=== PATIENT | male | born 1945 | race Caucasian/White ===

== ENCOUNTER 2019-12-31 22:11 | Emergency (ER) | payer OTHER ==
--- OUTSIDE RECORDS SUMMARY | 2019-12-31 22:13 | XMS REPORT | Clinical Summary ---
:1945 Author Organization [facility] Address [address] [place] [address] Care Team Providers Name Role Phone Lj Hall MD Primary Care Provider Allergies No Known Allergies Medications Medication Sig Dispensed Refills Start Date End Date Status donepezil (ARICEPT) 10 MG Take 10 mg by 0 Active tablet mouth nightly. metoprolol succinate XL Take 25 mg by 0 Active (TOPROL-XL) 25 mg 24 hr mouth tablet nightly. hydroCHLOROthiazide Take 12.5 mg 0 Active (HYDRODIURIL) 12.5 MG by mouth tablet every morning. 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 Last Filed Vital Signs Not on file Plan of Treatment Health Maintenance Due Date Last Done Comments SHINGLES VACCINES (#1) 1993 65+ PNEUMOCOCCAL VACCINE (1 of 2 - PCV13) 02/05/2008 INFLUENZA VACCINE 03/17/2020 COLONOSCOPY SCREENING 02/23/2022 02/23/2017 Results Not on fileafter 12/30/2018 Advance Directives For more information, please contact: [phone] Type Date Recorded Patient Armor Reconnaissance Vehicle Driver Explanati on Advance Directives, Living Will and Medical Power of Architecture Faculty Member Advance Directives, 04/06/2017 12:00 AM Living Will and Medical Power of Architecture Faculty Member
[2019-12-31 23:47] LABS: Basophils % 0.5 % (0-1.3); Hematocrit 47.1 % (39.6-49.0); Lymphocytes % 12.2 % (15.3-44.8); MPV 8.1 fL (7.6-11.3); RBC Red Blood Cell Count 5.23 M/uL (4.33-5.43)
[2019-12-31 23:54] LABS: Protime INR 1.01
[2020-01-01 00:04] LABS: Albumin 3.8 g/dL (3.4-5.0); Bilirubin Direct 0.1 mg/dL (0-0.2); Bilirubin Total 0.3 mg/dL (0.2-1.0); Potassium 3.9 mmol/L (3.5-5.1); Protein, Total 7.5 g/dL (6.4-8.2)
[2020-01-01 00:07] LABS: Magnesium 2.5 mg/dL (1.8-2.4); NT PRO-BNP 41 pg/mL (<450); Troponin (Emerg Dept Use Only) < 0.02 ng/mL (0.0-0.045)
[2020-01-01] MEDS ORDERED: MECLIZINE HCL 12.5 MG TAB ONE (00:46)
[2020-01-01] MEDS ORDERED: NA CHLORIDE 0.9% 1,000 ML ONE (00:46)
[2020-01-01] MEDS ORDERED: ONDANSETRON 4 MG/2 ML VIAL ONE (00:46)
--- NOTE | 2020-01-01 01:03 | ER ---
Nurse's Notes [facility] Name: Robby Dejesus Age: 74 yrs Sex: Male : 1945 Arrival Date: 12/31/2019 Time: 22:14 Bed 20 Private MD: Diagnosis: Vertiginous syndromes in diseases classified elsewhere, unspecified ear;Vomiting Presentation: 12/30 22:35 Chief complaint: Spouse and/or significant other states: patient suddenly vomited, rr5 feels dizzy and cold clammy started around 2100H tonight. no weakness, no LOC reported. 22:35 Coronavirus screen: Proceed with normal triage. Ebola Screen: Patient negative for rr5 fever greater than or equal to 101.5 degrees Fahrenheit, and additional compatible Ebola Virus Disease symptoms Patient denies exposure to infectious person. Patient denies travel to an Ebola-affected area in the 21 days before illness onset. Initial Sepsis Screen: Does the patient meet any 2 criteria? No. Patient's initial sepsis screen is negative. Does the patient have a suspected source of infection? No. Patient's initial sepsis screen is negative. Risk Assessment: Do you want to hurt yourself or someone else? Patient reports no desire to harm self or others. Onset of symptoms was December 31, 2019 at 21:00. 22:35 Method Of Arrival: Wheelchair rr5 22:35 Acuity: HUY 3 rr5 Historical: - Allergies: 22:43 No Known Allergies; rr5 - Home Meds: 22:43 hctz [Active]; Metoprolol Tartrate Oral [Active]; alzheimer medication [Active]; rr5 - PMHx: 22:43 Alzheimers; colon tumor; Hypertension; rr5 - PSHx: 22:43 colon surgery; Cholecystectomy; rr5 - Immunization history:: Adult Immunizations up to date. - Social history:: Smoking status: Patient denies any tobacco usage or history of. Patient/guardian denies using alcohol, street drugs. Screenin:43 Abuse screen: Denies threats or abuse. Denies injuries from another. Nutritional rr5 screening: No deficits noted. Tuberculosis screening: No symptoms or risk factors identified. Fall Risk Secondary diagnosis (15 points) Alzheimer's, IV access (20 points). Total Chaudhari Fall Scale indicates No Risk (0-24 pts). 22:45 VAN Screening: Arm Drift: Patient shows no arm weakness. Patient is VAN negative. rr5 Assessment: 22:45 General: Appears in no apparent distress. comfortable, Behavior is calm, cooperative. rr5 Pain: Denies pain. Neuro: Level of Consciousness is awake, alert, obeys commands, Oriented to person, place, time, Cable Systems Installer are equal bilaterally Moves all extremities. Full function Speech is normal, Facial symmetry appears normal, Reports dizziness. Cardiovascular: Capillary refill < 3 seconds Patient's skin is warm and dry. Respiratory: Airway is patent Respiratory effort is even, unlabored, Respiratory pattern is regular, symmetrical. GI: Abdomen is round non-distended, Parent/caregiver reports the patient having nausea, vomiting. : No signs and/or symptoms were reported regarding the genitourinary system. EENT: No signs and/or symptoms were reported regarding the EENT system. Derm: Skin is intact, is healthy with good turgor, Skin temperature is warm. Musculoskeletal: Capillary refill < 3 seconds. 12/31 00:00 Reassessment: Patient appears in no apparent distress at this time. No changes from rr5 previously documented assessment. Patient and/or family updated on plan of care and expected duration. Pain level reassessed. 00:30 Reassessment: Patient appears in no apparent distress at this time. Patient is alert, rr5 oriented x 3, equal unlabored respirations, skin warm/dry/pink. seen and examined by ED provider with order made and carried out. 01:15 Reassessment: Patient appears in no apparent distress at this time. Patient is alert, rr5 oriented x 3, equal unlabored respirations, skin warm/dry/pink. discharge instruction given and explained without complaints made. Patient states feeling better. Patient states symptoms have improved. Vital Signs: 12/30 22:35 BP 146 / 81; Pulse 52; Resp 16; Temp 97.5; Pulse Ox 99% ; Weight 78.47 kg; Height 6 ft. rr5 0 in. (182.88 cm); Pain 0/10; 23:00 BP 146 / 81; Pulse 53; Resp 18; Pulse Ox 98% ; rr5 12/31 00:00 BP 148 / 82; Pulse 50; Resp 15; Pulse Ox 98% ; rr5 00:55 BP 142 / 77; Pulse 49; Resp 19; Pulse Ox 99% ; rr5 01:20 BP 135 / 78; Pulse 51; Resp 18; Pulse Ox 98% ; rr5 12/30 22:35 Body Mass Index 23.46 (78.47 kg, 182.88 cm) rr5 ED Course: 12/30 22:14 Patient arrived in ED. ds1 22:32 Storm Whitehead, RN is Primary Nurse. rr5 22:40 Triage completed. rr5 22:40 Arm band placed on right wrist. rr5 22:45 Patient has correct armband on for positive identification. Bed in low position. Call rr5 light in reach. Pulse ox on. NIBP on. 22:54 Roberto Archer MD is Attending Physician. santos 23:15 Inserted saline lock: 20 gauge in right forearm, using aseptic technique. Blood rr5 collected. 23:18 pump machine operator on. rr5 23:18 EKG done, by ED staff, reviewed by Roberto Archer MD. rr5 12/31 00:02 XRAY Chest (1 view) In Process Unspecified. EDMS 01:01 Jori Vargas MD is Referral Physician. santos 01:15 Urine collected: clean catch specimen, clear. rr5 01:20 No provider procedures requiring assistance completed. IV discontinued, intact, rr5 bleeding controlled, No redness/swelling at site. Pressure dressing applied. Administered Medications: 00:35 Drug: NS 0.9% 1000 ml Route: IV; Rate: 1 bolus; Site: right forearm; rr5 01:20 Follow up: Response: No adverse reaction; IV Status: Completed infusion; IV Intake: rr5 1000ml 00:35 Drug: Zofran (Ondansetron) 4 mg Route: IVP; Site: right forearm; rr5 01:20 Follow up: Response: No adverse reaction rr5 00:36 Drug: Meclizine 50 mg Route: PO; rr5 01:20 Follow up: Response: No adverse reaction; Marked relief of symptoms rr5 Intake: 01:20 IV: 1000ml; Total: 1000ml. rr5 Outcome: 01:01 Discharge ordered by . santos 01:20 Discharged to home via wheelchair, with family. rr5 01:20 Condition: stable 01:20 Discharge instructions given to patient, family, Instructed on discharge instructions, follow up and referral plans. medication usage, Demonstrated understanding of instructions, follow-up care, medications, Prescriptions given X 2. 01:26 Patient left the ED. rr5 Signatures: Dispatcher [employer] Roberto Lewis MD MD cha Sanford, Demi ds1 Storm Whitehead, RN RN rr5
--- NOTE | 2020-01-01 01:03 | EDPHYS ---
Physician Documentation [facility] Name: Robby Dejesus Age: 74 yrs Sex: Male : 1945 Arrival Date: 12/31/2019 Time: 22:14 Bed 20 Private MD: RADHA Physician Roberto Archer HPI: 12/31 00:32 This 74 yrs old Male presents to ER via Wheelchair with complaints of santos Vomiting. 00:32 The patient presents to the emergency department with nausea, vomiting, that is santos intermittent. Onset: The symptoms/episode began/occurred just prior to arrival. Possible causes: unknown. The symptoms are aggravated by movement, The symptoms are alleviated by remaining still. Associated signs and symptoms: Pertinent positives: nausea, vomiting. Severity of symptoms: At their worst the symptoms were moderate in the emergency department the symptoms have improved mildly. The patient has not experienced similar symptoms in the past. Historical: - Allergies: 12/30 22:43 No Known Allergies; rr5 - Home Meds: 22:43 hctz [Active]; Metoprolol Tartrate Oral [Active]; alzheimer medication [Active]; rr5 - PMHx: 22:43 Alzheimers; colon tumor; Hypertension; rr5 - PSHx: 22:43 colon surgery; Cholecystectomy; rr5 - Immunization history:: Adult Immunizations up to date. - Social history:: Smoking status: Patient denies any tobacco usage or history of. Patient/guardian denies using alcohol, street drugs. ROS: 12/31 00:33 Constitutional: Negative for fever, chills, and weight loss, Eyes: Negative for injury, santos pain, redness, and discharge, ENT: Negative for injury, pain, and discharge, Neck: Negative for injury, pain, and swelling, Cardiovascular: Negative for chest pain, palpitations, and edema, Respiratory: Negative for shortness of breath, cough, wheezing, and pleuritic chest pain, Back: Negative for injury and pain, : Negative for injury, bleeding, discharge, and swelling, MS/Extremity: Negative for injury and deformity, Skin: Negative for injury, rash, and discoloration, Psych: Negative for depression, anxiety, suicide ideation, homicidal ideation, and hallucinations, Allergy/Immunology: Negative for hives, rash, and allergies, Endocrine: Negative for neck swelling, polydipsia, polyuria, polyphagia, and marked weight changes, Hematologic/Lymphatic: Negative for swollen nodes, abnormal bleeding, and unusual bruising. Abdomen/GI: Positive for abdominal pain, nausea and vomiting. Neuro: Positive for dizziness. Exam: 00:33 Constitutional: This is a well developed, well nourished patient who is awake, alert, santos and in no acute distress. Head/Face: Normocephalic, atraumatic. ENT: Nares patent. No nasal discharge, no septal abnormalities noted. Tympanic membranes are normal and external auditory canals are clear. Oropharynx with no redness, swelling, or masses, exudates, or evidence of obstruction, uvula midline. Mucous membranes moist. Neck: Trachea midline, no thyromegaly or masses palpated, and no cervical lymphadenopathy. Supple, full range of motion without nuchal rigidity, or vertebral point tenderness. No Meningismus. Chest/axilla: Normal chest wall appearance and motion. Nontender with no deformity. No lesions are appreciated. Cardiovascular: Regular rate and rhythm with a normal S1 and S2. No gallops, murmurs, or rubs. Normal PMI, no JVD. No pulse deficits. Respiratory: Lungs have equal breath sounds bilaterally, clear to auscultation and percussion. No rales, rhonchi or wheezes noted. No increased work of breathing, no retractions or nasal flaring. Abdomen/GI: Soft, non-tender, with normal bowel sounds. No distension or tympany. No guarding or rebound. No evidence of tenderness throughout. Back: No spinal tenderness. No costovertebral tenderness. Full range of motion. Male : Normal genitalia with no discharge or lesions. Skin: Warm, dry with normal turgor. Normal color with no rashes, no lesions, and no evidence of cellulitis. MS/ Extremity: Pulses equal, no cyanosis. Neurovascular intact. Full, normal range of motion. Neuro: Awake and alert, GCS 15, oriented to person, place, time, and situation. Cranial nerves II-XII grossly intact. Motor strength 5/5 in all extremities. Sensory grossly intact. Cerebellar exam normal. Normal gait. Psych: Awake, alert, with orientation to person, place and time. Behavior, mood, and affect are within normal limits. 00:33 Constitutional: The patient appears in no acute distress. 00:33 Head/face: Exam is negative for 00:33 Eyes: Periorbital structures: appear normal, no acute changes, Pupils: no acute changes, equal, round, and reactive to light and accomodation, Extraocular movements: intact throughout, Conjunctiva: normal, no acute changes, Corneas: are normal, no acute changes, Sclera: no appreciated abnormality, no acute changes, Anterior chamber: normal, no acute changes, Lids and lashes: appear normal, no acute changes, Visual estrada: are intact, no acute changes, Nystagmus: nystagmus with fast component noted, in the right eye. 00:33 Neck: External neck: is normal, no acute changes, Thyroid: appears normal, no acute changes, Trachea: is midline with no obvious abnormalities, no acute changes, ROM/movement: is normal, no acute changes, Lymph nodes: no appreciated lymphadenopathy. 00:33 Cardiovascular: Rate: normal, Rhythm: regular, Pulses: no pulse deficits are appreciated, Heart sounds: normal, Edema: is not appreciated, JVD: is not appreciated, no carotid bruits. 00:38 ECG was reviewed by the Attending Physician. [facility] 00:38 ECG was reviewed by the Attending Physician. [facility] Vital Signs: 12/30 22:35 BP 146 / 81; Pulse 52; Resp 16; Temp 97.5; Pulse Ox 99% ; Weight 78.47 kg; Height 6 ft. rr5 0 in. (182.88 cm); Pain 0/10; 23:00 BP 146 / 81; Pulse 53; Resp 18; Pulse Ox 98% ; rr5 12/31 00:00 BP 148 / 82; Pulse 50; Resp 15; Pulse Ox 98% ; rr5 00:55 BP 142 / 77; Pulse 49; Resp 19; Pulse Ox 99% ; rr5 01:20 BP 135 / 78; Pulse 51; Resp 18; Pulse Ox 98% ; rr5 12/30 22:35 Body Mass Index 23.46 (78.47 kg, 182.88 cm) rr5 MDM: 12/30 22:54 Patient medically screened. [facility] 12/31 00:36 Differential diagnosis: viral gastroenteritis, vertigo. Differential diagnosis: cardiac santos arrhythmia, generalized weakness, hypovolemia, idiopathic dizziness, near-syncope, vertigo. Data reviewed: vital signs, nurses notes, lab test result(s), EKG, radiologic studies, plain films. 00:39 Data interpreted: assistant executive housekeeper: rate is 52 beats/min, rhythm is normal sinus rhythm, santos sinus bradycardia, Pulse oximetry: on room air is 99 %. Test interpretation: by ED physician or midlevel provider: ECG, plain radiologic studies. Counseling: I had a detailed discussion with the patient and/or guardian regarding: the historical points, exam findings, and any diagnostic results supporting the discharge/admit diagnosis, lab results, radiology results, the need for outpatient follow up, for definitive care, an plant sciences professor, a neurologist. Medication response: meclizine. ED course: improved, dizzy with rom head , especially leaning head back. said dr has done all carotid test in his office, and dr vargas as well. 12/30 22:56 Order name: Basic Metabolic Panel; Complete Time: 00:27 rr5 12/30 22:56 Order name: CBC with Diff; Complete Time: 00:27 rr5 12/30 22:56 Order name: Hepatic Function; Complete Time: 00:27 rr5 12/30 22:56 Order name: Lipase; Complete Time: 00:27 rr5 12/30 23:22 Order name: Magnesium; Complete Time: 00:27 rr5 12/30 23:22 Order name: NT PRO-BNP; Complete Time: 00:27 rr5 12/30 23:22 Order name: PT-INR; Complete Time: 00:27 rr5 12/30 23:22 Order name: Troponin (emerg Dept Use Only); Complete Time: 00:27 rr5 12/30 23:22 Order name: XRAY Chest (1 view) rr5 12/30 23:22 Order name: EKG; Complete Time: 23:23 rr5 12/30 23:26 Order name: Glucose, Ancillary Testing; Complete Time: 00:27 EDMS 12/30 22:56 Order name: IV Saline Lock; Complete Time: 23:18 rr5 12/30 22:56 Order name: Labs collected and sent; Complete Time: 23:18 rr5 12/30 23:22 Order name: EKG - Nurse/Tech; Complete Time: 23:22 rr5 12/30 23:22 Order name: Blood Sugar; Complete Time: 23:22 rr5 12/30 23:22 Order name: Cardiac monitoring; Complete Time: 23:22 rr5 12/30 23:22 Order name: O2 Per Protocol; Complete Time: 23:22 rr5 12/30 23:22 Order name: O2 Sat Monitoring; Complete Time: 23:22 rr5 12/31 01:02 Order name: Urine Dipstick-Ancillary (obtain specimen); Complete Time: 01:15 ar5 EC:38 Rate is 50 beats/min. Rhythm is regular. QRS [place] is Normal. OR interval is normal. QRS santos interval is normal. QT interval is normal. No Q waves. T waves are Normal. No ST changes noted. Clinical impression: Sinus bradycardia. Interpreted by me. Reviewed by me. 00:38 Rate is 48 beats/min. Rhythm is regular. QRS [place] is Normal. OR interval is normal. QRS santos interval is normal. QT interval is normal. No Q waves. T waves are Normal. No ST changes noted. Clinical impression: Sinus bradycardia. Interpreted by me. Reviewed by me. Administered Medications: 00:35 Drug: NS 0.9% 1000 ml Route: IV; Rate: 1 bolus; Site: right forearm; rr5 01:20 Follow up: Response: No adverse reaction; IV Status: Completed infusion; IV Intake: rr5 1000ml 00:35 Drug: Zofran (Ondansetron) 4 mg Route: IVP; Site: right forearm; rr5 01:20 Follow up: Response: No adverse reaction rr5 00:36 Drug: Meclizine 50 mg Route: PO; rr5 01:20 Follow up: Response: No adverse reaction; Marked relief of symptoms rr5 Disposition: 01/01/20 01:01 Discharged to Home. Impression: Vertiginous syndromes in diseases classified elsewhere, unspecified ear, Vomiting. - Condition is Stable. - Discharge Instructions: Dizziness, Nausea and Vomiting, Adult, Vertigo, Nausea and Vomiting, Adult, Dvfd-[id number], Vertigo, Nmfz-gj-Fzee, Dizziness, Nluo-cu-Lcix. - Prescriptions for Meclizine 25 mg Oral Tablet - take 1 tablet by ORAL route every 8 hours As needed; 30 tablet. Zofran 4 mg Oral Tablet - take 1 tablet by ORAL route every 12 hours As needed; 20 tablet. - Medication Reconciliation Form, Thank You Letter, Antibiotic Education, Prescription Opioid Use form. - Follow up: Private Physician; When: 2 - 3 days; Reason: Recheck today's complaints, Continuance of care, Re-evaluation by your physician. Follow up: Jori Vargas; When: 2 - 3 days; Reason: Recheck today's complaints, Re-evaluation by your physician. - Problem is new. - Symptoms have improved. Signatures: Dispatcher [employer] EDRoberto Quan MD MD cha Roque, Raymond, RN RN rr5 Barksdale, Ladi ar5 Corrections: (The following items were deleted from the chart) 01:26 01:01 01/01/2020 01:01 Discharged to Home. Impression: Vertiginous syndromes in rr5 diseases classified elsewhere, unspecified ear; Vomiting. Condition is Stable. Discharge Instructions: Dizziness, Nausea and Vomiting, Adult, Vertigo, Nausea and Vomiting, Adult, Fwot-gy-Vkok, Vertigo, Yzig-di-Pzdt, Dizziness, Oaxg-xq-Rukf. Prescriptions for Meclizine 25 mg Oral Tablet - take 1 tablet by ORAL route every 8 hours As needed; 30 tablet, Zofran 4 mg Oral Tablet - take 1 tablet by ORAL route every 12 hours As needed; 20 tablet. and Forms are Medication Reconciliation Form, Thank You Letter, Antibiotic Education, Prescription Opioid Use. Follow up: Private Physician; When: 2 - 3 days; Reason: Recheck today's complaints, Continuance of care, Re-evaluation by your physician. Follow up: Jori Vargas; When: 2 - 3 days; Reason: Recheck today's complaints, Re-evaluation by your physician. Problem is new. Symptoms have improved. santos
[2020-01-01 01:37] VITALS: TEMP 97.5
[2020-01-01 01:42] VITALS: BP 142/77; O2SAT 99
--- NOTE | 2020-01-01 07:11 | EKG ---
Test Date: 2019-12-31 Test Time: 23:07:00 End Lathe Operator: RR MEASUREMENT RESULTS: Intervals: Rate: 50 CO: 158 QRSD: 66 QT: 442 QTc: 402 [place]: P: 18 CO: 158 QRS: 59 T: 66 INTERPRETIVE STATEMENTS: Sinus bradycardia Early repolarization Otherwise normal ECG Compared to ECG 09/27/2000 00:22:00 Early repolarization now present Sinus rhythm no longer present Electronically Signed On 01-01-20 07:10:41 CDT by Jori Vargas
--- NOTE | 2020-01-01 09:55 | RAD REPORT ---
EXAM DESCRIPTION: [place] Single View01/01/2020 12:01 am CLINICAL HISTORY: Shortness breath COMPARISON: 2016 FINDINGS: The lungs appear clear of acute infiltrate. The heart is normal size IMPRESSION: No acute abnormalities displayed
--- NOTE | 2020-01-03 07:04 | EKG ---
Test Date: 2019-12-31 Test Time: 23:33:53 Ingredient Mixer: RR MEASUREMENT RESULTS: Intervals: Rate: 48 SC: 200 QRSD: 88 QT: 446 QTc: 398 [place]mond: P: 58 SC: 200 QRS: 56 T: 61 INTERPRETIVE STATEMENTS: Marked sinus bradycardia Early repolarization Abnormal ECG Compared to ECG 12/31/2019 23:07:00 No significant changes Electronically Signed On 01-03-20 07:00:41 CDT by Jori Vargas
== END 2020-01-01 01:26 | disposition home or self-care (01) ==
LOC: ER 22:11
DX: R42 Dizziness and giddiness (principal); H82.9 Vertiginous syndromes in diseases classified elsewhere, unspecified ear; I10 Essential (primary) hypertension; G30.9 Alzheimer's disease, unspecified; F02.80 Dementia in other diseases classified elsewhere, unspecified severity, without behavioral disturbance, psychotic disturbance, mood disturbance, and anxiety
CPT/HCPCS: 96361; 93005 ×2; 85025; 80048; 36415; 83735; 85610; 82947; 80076; 84484; 83690; 83880; 71045; 96374; 99285; J7030; J2405; J8597